=== PATIENT | female | born 2000 | race American Indian/Alaskan Native ===

== ENCOUNTER 2019-12-15 21:53 | Outpatient (CLI) | payer MEDICAID ==
[2019-12-15] MEDS ORDERED: LACTATED RINGERS 1,000 ML IV ONE (22:50)
[2019-12-15 23:55] LABS: Bilirubin,Urine NEG (Negative); Blood,Urine NEG (Negative); Color,Urine Straw (Yellow); Protein,Urine <15 mg/dL mg/dL (Negative); Urobilinogen,Urine < 2.0 mg/dL (<2.0)
[2019-12-16 01:09] VITALS: BP 131/72
--- NOTE | 2019-12-16 02:09 | Ultrasound Report ---
ULTRASOUND BIOPHYSICAL PROFILE INDICATION / CLINICAL INFORMATION: Decreased movement. COMPARISON: None available. FINDINGS: BREATHING MOVEMENT = 2 GROSS BODY MOVEMENT = 2 TONE = 2 QUALITATIVE AMNIOTIC FLUID VOLUME = 2 TOTAL BIOPHYSICAL SCORE = 07/08 AMNIOTIC FLUID: Deepest fluid pocket measures 4.9 cm. PRESENTATION: Cephalic. HEART RATE (beats per minute): 137 IMPRESSION: biophysical profile = 07/08 Signer Name: Pb Greenwood MD Signed: 12/16/2019 2:04 AM Workstation Name: [email or web address]
== END 2019-12-16 02:02 | disposition home or self-care (01) ==
LOC: TRG 21:53
PROVIDERS: ATTEND Obstetrics & Gynecology
DX: O62.9 Abnormality of forces of labor, unspecified (principal); O36.8130 Decreased fetal movements, third trimester, not applicable or unspecified; Z3A.36 36 weeks gestation of pregnancy
CPT/HCPCS: 59025; 76819; 81001; 96360; J7120

== ENCOUNTER 2020-01-06 20:09 | Outpatient (CLI) | payer MEDICAID ==
[2020-01-07] MEDS ORDERED: LACTATED RINGERS 1,000 ML ONE (00:57)
[2020-01-07] MEDS ORDERED: LACTATED RINGERS 1,000 ML IV ONE (01:23)
[2020-01-07 02:02] LABS: Hematocrit 33.6 % (30.3-42.9); Hemoglobin 10.9 gm/dl (10.1-14.3); Mean Corpuscular HGB Conc 33 % (30-34); Mean Corpuscular Volume 87 fl (79-97); Platelet Count 119 K/mm3 (140-440); Red Blood Count 3.84 M/mm3 (3.65-5.03); Red Cell Distribution Width 13.6 % (13.2-15.2)
[2020-01-07 02:08] LABS: Bacteria,Urine 3+ /HPF (Negative); Mucus,Urine 2+ /HPF
[2020-01-07 02:25] LABS: Alanine Aminotransferase 12 units/L (7-56)
[2020-01-07 02:27] LABS: Bilirubin,Urine NEG (Negative); Blood,Urine NEG (Negative); Color,Urine Yellow (Yellow); Urobilinogen,Urine < 2.0 mg/dL (<2.0)
[2020-01-07] MEDS ORDERED: TERBUTALINE 1 MG/1 ML INJ SUB-Q ONE (02:47)
[2020-01-07 03:13] LABS: Uric Acid 4.1 mg/dL (3.5-7.6)
[2020-01-07 03:30] VITALS: BP 134/82
== END 2020-01-07 03:39 | disposition home or self-care (01) ==
LOC: TRG 20:09
PROVIDERS: ATTEND Obstetrics & Gynecology
DX: O47.1 False labor at or after 37 completed weeks of gestation (principal); Z3A.39 39 weeks gestation of pregnancy
CPT/HCPCS: 36415; 59025; 81001; 82565; 83615; 84450; 84460; 84550; 85027; 86592; 86850; 86900; 86901; 87076; 87086; 87186; 96360; 96372; J3105; J7120; Q0177

== ENCOUNTER 2020-01-07 14:22 | Inpatient (IN) | payer MEDICAID ==
[2020-01-07] MEDS ORDERED: LACTATED RINGERS 1,000 ML ONE (15:54)
[2020-01-07 17:27] LABS: Hematocrit 34.7 % (30.3-42.9); Hemoglobin 11.2 gm/dl (10.1-14.3); Mean Corpuscular HGB Conc 32 % (30-34); Mean Corpuscular Volume 87 fl (79-97); Platelet Count 130 K/mm3 (140-440); Red Blood Count 3.97 M/mm3 (3.65-5.03); Red Cell Distribution Width 13.7 % (13.2-15.2)
[2020-01-07 17:36] LABS: Bacteria,Urine 1+ /HPF (Negative); Bilirubin,Urine NEG (Negative); Blood,Urine LG (Negative); Color,Urine Yellow (Yellow); Mucus,Urine 1+ /HPF; Urobilinogen,Urine < 2.0 mg/dL (<2.0)
[2020-01-07 17:47] LABS: Alanine Aminotransferase 13 units/L (7-56)
[2020-01-07] MEDS ORDERED: BUTORPHANOL 2 MG/1 ML INJ IV ONE (17:57)
[2020-01-07] MEDS ORDERED: MINERAL OIL 30 ML ORAL LIQD PO PRN (18:46)
[2020-01-07] MEDS ORDERED: ePHEDrine SULFATE 50 MG/1 ML INJ IV PRN ×2 (18:46→20:36)
[2020-01-07] MEDS ORDERED: ONDANSETRON 4 MG/2 ML INJ IV PRN (18:46)
[2020-01-07] MEDS ORDERED: BUTORPHANOL 2 MG/1 ML INJ IV PRN (18:46)
[2020-01-07] MEDS ORDERED: PROMETHAZINE 25 MG RECT SUPP PR PRN (18:46)
[2020-01-07] MEDS ORDERED: TERBUTALINE 1 MG/1 ML INJ IVP PRN (18:46)
[2020-01-07] MEDS ORDERED: LIDOCAINE (2%) 20 MG/1 ML VIAL 20 ML MDV INFILTRATI ONE (18:46)
[2020-01-07] MEDS ORDERED: fentaNYL 100 MCG/2 ML INJ IV PRN (18:46)
[2020-01-07] MEDS ORDERED: TERBUTALINE 1 MG/1 ML INJ SUB-Q PRN (18:46)
[2020-01-07] MEDS ORDERED: OXYTOCIN 20 UNIT/1000ML DRIP 20 UNITS/1,000 ML BAG IV SCH (19:00)
[2020-01-07] MEDS ORDERED: LACTATED RINGERS 1,000 ML IV SCH (19:00)
[2020-01-07] MEDS ORDERED: OXYTOCIN DRIP 30 UNITS/500 ML BAG IV SCH ×2 (19:00)
[2020-01-07] MEDS ORDERED: MAGNESIUM SULFATE 4 GM/100 ML BAG IV ONE (20:06)
[2020-01-07] MEDS ORDERED: DEXMEDETOMIDINE 200 MCG/2 ML VIAL IV ONE (20:31)
[2020-01-07] MEDS ORDERED: NALOXONE 2 MG/2 ML INJ IV PRN (20:36)
--- NOTE | 2020-01-07 20:37 | Anesthesia Consultation ---
Anesthesia Consult and Med Hx Date of service: 01/07/20 - Airway Anesthetic Teeth Evaluation: Good ROM Head & Neck: Adequate Mental/Hyoid Distance: Adequate Mallampati Class: Class II Intubation Access Assessment: Probably Good - Pulmonary Exam CTA: Yes - Cardiac Exam Cardiac Exam: RRR - Pre-Operative Health Status ASA Pre-Surgery Classification: ASA3 Proposed Anesthetic Plan: Epidural - Pulmonary Hx Asthma: No - Cardiovascular System Hx Hypertension: Yes - Central Nervous System Hx Seizures: No Hx Psychiatric Problems: No - Endocrine Hx Renal Disease: No Hx Hypothyroidism: No Hx Hyperthyroidism: No - Hematic Hx Anemia: No Hx Sickle Cell Disease: No - Other Systems Hx Alcohol Use: No
[2020-01-07] MEDS ORDERED: fentaNYL-BUPIV 2 MCG/ML-0.125% 200 MCG/100 ML BAG EPIDURAL SCH (21:00)
--- NOTE | 2020-01-07 22:08 | History and Physical Report ---
History of Present Illness Date of examination: 01/07/20 Date of admission: 01/07/20 16:35 Chief complaint: contractions History of present illness: Pt is a 19 year old -Citizen Of [place] female primigravida STEFANI 01/07/20 at 40w1d who presents with contractions and cervical change from 3-4 cm. During her observation she was found to have severe range blood pressures and was admitted for delivery. She had care at [facility] that has been uncomplicated. She is GBS negative. Past History Past Medical History: no pertinent history Past Surgical History: no surgical history Family/Genetic History: diabetes, hypertension Social history: no significant social history - Obstetrical History Expected Date of Delivery: 01/07/20 Actual Gestation: 40 Week(s) 1 Day(s) : 1 Medications and Allergies Allergies Allergy/AdvReac Type Severity Reaction Status Date / Time amoxicillin AdvReac Rash Verified 10/05/19 20:08 Home Medications Medication Instructions Recorded Confirmed Last Taken Type No Known Home Medications [No 12/15/19 01/07/20 Unknown History Reported Home Medications] Active Meds: Active Medications Butorphanol Tartrate (Stadol) 2 mg IV Q2H PRN PRN Reason: Pain , Severe (7-10) Ephedrine Sulfate (Ephedrine Sulfate) 10 mg IV Q2M PRN PRN Reason: Hypotension Ephedrine Sulfate (Ephedrine Sulfate) 10 mg IV Q2M PRN PRN Reason: Hypotension Fentanyl (Sublimaze) 100 mcg IV Q2H PRN PRN Reason: Labor Pain Oxytocin/Sodium Chloride (Pitocin/Ns 20 Unit/1000ml Drip) 20 units in 1,000 mls @ 125 mls/hr IV DIRECT KODY Oxytocin/Sodium Chloride (Pitocin/Ns 30 Unit/500ml) 30 units in 500 mls @ 1 mls/hr IV TITR KODY; Protocol Oxytocin/Sodium Chloride (Pitocin/Ns 30 Unit/500ml) 30 units in 500 mls @ 2 mls/hr IV TITR KODY; Protocol Lactated Ringer's (Lactated Ringers) 1,000 mls @ 125 mls/hr IV DIRECT KODY Last Admin: 01/07/20 21:14 Dose: 125 mls/hr Documented by: Magnesium Sulfate (Magnesium Sulfate 40gm/1000ml) 40 gm in 1,000 mls @ 50 mls/hr IV DIRECT KODY Fentanyl/Bupivacaine/Sodium Chlor (Fentanyl-Bupiv 2 Mcg/Ml-0.125%) 200 mcg in 100 mls @ 12 mls/hr EPIDURAL TITR KODY; Protocol Mineral Oil (Mineral Oil) 30 ml PO QHS PRN PRN Reason: Constipation Naloxone HCl (Naloxone) 0.2 mg IV Q5M PRN PRN Reason: Respiratory sedation Ondansetron HCl (Zofran) 4 mg IV Q8H PRN PRN Reason: Nausea And Vomiting Promethazine HCl (Phenergan) 25 mg MO Q6H PRN PRN Reason: N/V if unable to take po Terbutaline Sulfate (Brethine) 0.25 mg SUB-Q ONCE PRN PRN Reason: Hyperstimulation/Hypertonicity Terbutaline Sulfate (Brethine) 0.25 mg IVP ONCE PRN PRN Reason: Hyperstimulation/Hypertonicity - Vital Signs Vital signs: Vital Signs Pulse BP 75 185/113 01/07/20 15:22 01/07/20 15:22 Temp Pulse Resp BP Pulse Ox 97.9 F 56 L 18 144/95 100 01/07/20 17:32 01/07/20 22:07 01/07/20 19:08 01/07/20 22:07 01/07/20 22:04 - Physical Exam Breasts: Positive: deferred Cardiovascular: Regular rate Abdomen: Positive: soft (gravid ) Uterus: Positive: enlarged (gravid ) - Obstetrical FHR: category 2 Uterine Contraction Monitor Mode: External Cervical Dilatation: 5 Cervical Effacement Percentage: 90 station: -2 Uterine Contraction Pattern: Regular Uterine Tone Measurement Phase: Resting Uterine Contraction Intensity: Strong/Firm Results Result Diagrams: 01/07/20 Unknown 01/07/20 Unknown Abnormal lab results 01/07/20 01/07/20 01/07/20 Range/Units Unknown Unknown Unknown WBC 11.7 H (4.5-11.0) K/mm3 Plt Count 130 L (140-440) K/mm3 Creatinine 0.5 L (0.7-1.2) mg/dL Lactate Dehydrogenase 428 H (91-180) units/L Urine WBC (Auto) 18.0 H (0.0-6.0) /HPF All other labs normal. Assessment and Plan A: IUP at 40w1d Preeclampsia with severe features GBS Negative Penicillin Allergy P: Admit to labor and delivery Magnesium sulfate for seizure prophylaxis Pitocin augmentation Closely monitor maternal and status
[2020-01-07] MEDS: MAGNESIUM SULFATE 40GM/1000ML 40 GM/1,000 ML BAG IV SCH (23:16)
[2020-01-08] MEDS ORDERED: PROMETHAZINE 25 MG RECT SUPP PR PRN (02:33)
[2020-01-08] MEDS ORDERED: ONDANSETRON 4 MG/2 ML INJ IV PRN (02:33)
[2020-01-08] MEDS ORDERED: WITCH HAZEL/ GLYCERIN PAD TP PRN (02:33)
[2020-01-08] MEDS ORDERED: LANOLIN/ZINC/DIMETHICONE (LANSINOH) 7 GM TP PRN ×2 (02:33)
[2020-01-08] MEDS ORDERED: HYDROcodone/ACETAMINOPHEN 5-325 MG TAB PO PRN (02:33)
[2020-01-08] MEDS ORDERED: diphenhydrAMINE 25 MG CAP PO PRN (02:33)
[2020-01-08] MEDS ORDERED: MAGNESIUM HYDROXIDE (MOM) ORAL LIQD UDC PO PRN (02:33)
[2020-01-08] MEDS ORDERED: BENZOCAINE/MENTHOL 20/0.5% TOP SPRAY 56 GM TP PRN (02:33)
[2020-01-08] MEDS ORDERED: ACETAMINOPHEN 325 MG TAB PO PRN (02:33)
[2020-01-08] MEDS ORDERED: PROMETHAZINE 25 MG TAB PO PRN (02:33)
[2020-01-08] MEDS ORDERED: hydrALAZINE 20 MG/1 ML INJ IV PRN (02:33)
--- NOTE | 2020-01-08 02:33 | Procedure Note ---
OB Delivery Note - Delivery Date of Delivery: 01/08/20 Surgeon: DAX SCHMIDT Estimated blood loss: other (400 mL) - Vaginal Delivery presentation: vertex Delivery position: OA Intrapartum events: meconium Delivery induction: oxytocin Delivery augmentation: rupture of membranes, pitocin Delivery monitor: external FHT, external uterine Route of delivery: Delivery placenta: spontaneous Episiotomy: none Delivery laceration: other (Bilateral periurethral ) Anesthesia: epidural - Infant A at 1 minute: 8 at 5 minutes: 9 Gender: Female (3007g (6lb 10 oz) @ 0211 am)
[2020-01-08] MEDS ORDERED: LACTATED RINGERS 1,000 ML IV SCH (03:00)
[2020-01-08] MEDS: OXYTOCIN 20 UNIT/1000ML DRIP 20 UNITS/1,000 ML BAG IV SCH (03:02)
[2020-01-08] MEDS ORDERED: DEXMEDETOMIDINE 200 MCG/2 ML VIAL IV ONE (03:53)
[2020-01-08] MEDS: IBUPROFEN 600 MG TAB PO SCH ×2 (06:02→16:16)
[2020-01-08] MEDS ORDERED: BUPIVACAINE/PF (0.25%) 2.5 MG/ML 10 ML VIAL INFILTRATI ONE (09:10)
[2020-01-08] MEDS: FERROUS SULFATE 325 MG TAB PO SCH ×2 (09:52→21:35)
[2020-01-08 16:21] LABS: Hematocrit 35.3 % (30.3-42.9); Hemoglobin 11.3 gm/dl (10.1-14.3)
[2020-01-08] MEDS: MAGNESIUM SULFATE 40GM/1000ML 40 GM/1,000 ML BAG IV SCH (18:52)
--- NOTE | 2020-01-08 20:52 | Post Anesthesia Evaluation ---
- Post Anesthesia Evaluation Patient Participated: Yes Airway Patent: Yes Stable Respiratory Function: Yes Nausea/Vomiting: No Temp > 96.8F: Yes Pain Manageable: Yes Adequeate Hydration: Yes Anesthesia Complications: No Block Receding Appropriately: Yes
[2020-01-09] MEDS: IBUPROFEN 600 MG TAB PO SCH ×3 (00:10→11:52)
[2020-01-09] MEDS ORDERED: MEASLES, MUMPS & RUBELLA 12,500 UNIT/0.5 ML VACCINE SUB-Q ONE (06:00)
[2020-01-09] MEDS ORDERED: TETANUS,DIPH,PERTUSS(ACELL) VACCINE 0.5 ML SYRINGE IM ONE (06:00)
--- NOTE | 2020-01-09 08:39 | Progress Note ---
Assessment and Plan A: PPD#1 s/p at term, Severe Preeclampsia s/p 24 hrs magnesium sulfate for seizure prophylaxis. On Labetalol 100 mg BID presently P: Routine care. Monitor BP curve Subjective - Subjective Date of service: 01/09/20 Principal diagnosis: s/p at term, Severe Preeclampsia Interval history: Pt completed 24 hrs of magnesium sulfate for seizure prophylaxis. She is feeling well. Patient reports: appetite normal, voiding normally, pain well controlled, ambulating normally [place]: doing well Objective - Vital Signs Latest vital signs: Vital Signs Temp Pulse Resp BP BP Pulse Ox 01/09/20 03:17 97.8 F 88 18 149/109 01/09/20 02:37 97 H 97 01/09/20 02:32 97 H 97 01/09/20 02:27 93 H 97 01/09/20 02:22 94 H 99 01/09/20 02:21 106 H 92 01/09/20 02:17 86 97 01/09/20 02:12 85 98 01/09/20 02:07 88 97 01/09/20 02:02 86 97 01/09/20 02:00 96 H 138/96 01/09/20 01:57 89 97 01/09/20 01:52 94 H 98 01/09/20 01:47 90 97 01/09/20 01:42 88 97 01/09/20 01:37 88 97 01/09/20 01:32 90 97 01/09/20 01:27 92 H 97 01/09/20 01:22 95 H 97 01/09/20 01:17 94 H 98 01/09/20 01:12 102 H 100 01/09/20 01:07 92 H 97 01/09/20 01:02 90 98 01/09/20 01:00 95 H 133/86 01/09/20 00:57 96 H 98 01/09/20 00:52 93 H 98 01/09/20 00:47 92 H 98 01/09/20 00:42 90 98 01/09/20 00:37 89 98 01/09/20 00:32 88 98 01/09/20 00:27 86 98 01/09/20 00:22 87 98 01/09/20 00:17 84 99 01/09/20 00:12 87 99 01/09/20 00:07 82 99 01/09/20 00:02 82 100 01/09/20 00:00 82 134/81 01/08/20 23:57 87 98 01/08/20 23:52 89 99 01/08/20 23:47 85 99 01/08/20 23:42 91 H 100 01/08/20 23:37 88 100 01/08/20 23:32 84 98 01/08/20 23:27 85 98 01/08/20 23:22 82 99 01/08/20 23:17 82 99 01/08/20 23:12 84 98 01/08/20 23:07 79 99 01/08/20 23:02 83 99 01/08/20 23:00 76 140/94 01/08/20 22:57 78 100 01/08/20 22:52 84 99 01/08/20 22:47 85 98 01/08/20 22:42 83 99 01/08/20 22:37 85 100 01/08/20 22:32 85 98 01/08/20 22:27 89 99 01/08/20 22:22 87 98 01/08/20 22:17 90 97 01/08/20 22:12 93 H 96 01/08/20 22:07 90 98 01/08/20 22:05 89 153/96 01/08/20 22:02 94 H 98 01/08/20 21:57 99 H 98 01/08/20 21:52 85 100 01/08/20 21:47 90 98 01/08/20 21:42 85 100 01/08/20 21:37 89 99 01/08/20 21:32 89 99 01/08/20 21:27 93 H 99 01/08/20 21:22 100 H 153/101 99 01/08/20 21:19 92 H 165/104 01/08/20 21:17 96 H 100 01/08/20 21:12 94 H 100 01/08/20 21:07 90 100 01/08/20 21:02 97 H 100 01/08/20 20:57 87 100 01/08/20 20:52 87 156/102 99 01/08/20 20:47 90 99 01/08/20 20:42 91 H 98 01/08/20 20:37 90 99 01/08/20 20:32 91 H 98 01/08/20 20:00 97.8 F 20 01/08/20 19:55 87 143/85 01/08/20 19:52 93 H 149/101 01/08/20 19:22 88 134/93 01/08/20 18:52 96 H 138/94 01/08/20 18:22 97 H 153/101 01/08/20 17:52 96 H 153/100 01/08/20 17:22 130 H 189/98 01/08/20 16:52 90 154/102 01/08/20 16:22 99 H 156/99 01/08/20 16:18 95 H 99 01/08/20 16:13 92 H 99 01/08/20 16:08 104 H 98 01/08/20 16:07 97.3 F L 18 01/08/20 16:03 105 H 100 01/08/20 15:58 102 H 99 01/08/20 15:53 98 H 98 01/08/20 15:52 90 153/102 01/08/20 15:48 97 H 99 01/08/20 15:43 94 H 98 01/08/20 15:38 97 H 99 01/08/20 15:33 100 H 97 01/08/20 15:28 96 H 98 01/08/20 15:23 103 H 99 01/08/20 15:22 100 H 142/104 01/08/20 15:18 103 H 98 01/08/20 15:13 97 H 100 01/08/20 15:08 104 H 98 01/08/20 15:03 95 H 98 01/08/20 14:58 99 H 98 01/08/20 14:53 99 H 97 01/08/20 14:52 98 H 139/97 94 01/08/20 14:48 94 H 97 01/08/20 14:43 107 H 98 01/08/20 14:38 102 H 97 01/08/20 14:33 107 H 98 01/08/20 14:28 104 H 98 01/08/20 14:23 96 H 97 01/08/20 14:22 104 H 142/92 01/08/20 14:18 109 H 96 01/08/20 14:13 111 H 97 01/08/20 14:08 102 H 98 01/08/20 14:03 97 H 97 01/08/20 13:58 97 H 97 01/08/20 13:53 110 H 98 01/08/20 13:52 109 H 139/99 01/08/20 13:48 110 H 98 01/08/20 13:43 106 H 98 01/08/20 13:38 109 H 98 01/08/20 13:33 105 H 99 01/08/20 13:28 101 H 98 01/08/20 13:23 101 H 99 01/08/20 13:22 100 H 142/100 01/08/20 13:18 116 H 98 01/08/20 13:13 116 H 96 01/08/20 13:08 104 H 96 01/08/20 13:07 97.3 F L 15 01/08/20 13:03 108 H 97 01/08/20 12:58 101 H 96 01/08/20 12:53 106 H 97 01/08/20 12:52 107 H 151/104 94 01/08/20 12:48 105 H 98 01/08/20 12:43 109 H 97 01/08/20 12:38 113 H 98 01/08/20 12:33 105 H 97 01/08/20 12:28 107 H 97 01/08/20 12:23 109 H 97 01/08/20 12:22 107 H 157/105 01/08/20 12:18 111 H 99 01/08/20 12:13 104 H 97 01/08/20 12:08 102 H 97 01/08/20 12:03 108 H 97 01/08/20 11:58 113 H 98 01/08/20 11:53 105 H 98 01/08/20 11:52 107 H 138/98 01/08/20 11:48 95 01/08/20 11:43 107 H 98 01/08/20 11:38 111 H 98 01/08/20 11:33 117 H 99 01/08/20 11:28 117 H 98 01/08/20 11:23 109 H 99 01/08/20 11:22 111 H 147/100 01/08/20 11:18 108 H 98 01/08/20 11:13 106 H 98 01/08/20 11:08 112 H 99 01/08/20 11:03 118 H 100 01/08/20 10:58 109 H 99 01/08/20 10:53 125 H 99 01/08/20 10:52 121 H 143/96 01/08/20 10:48 105 H 96 01/08/20 10:43 105 H 96 01/08/20 10:38 101 H 96 01/08/20 10:33 106 H 96 01/08/20 10:28 106 H 96 01/08/20 10:23 105 H 96 01/08/20 10:22 105 H 133/85 01/08/20 10:18 103 H 96 01/08/20 10:13 103 H 96 01/08/20 10:08 103 H 96 01/08/20 10:03 102 H 96 01/08/20 10:00 16 01/08/20 09:58 104 H 96 01/08/20 09:53 104 H 96 01/08/20 09:52 103 H 138/78 94 01/08/20 09:48 99 H 96 01/08/20 09:43 96 H 96 01/08/20 09:38 107 H 98 01/08/20 09:33 108 H 97 01/08/20 09:28 105 H 98 01/08/20 09:23 110 H 98 01/08/20 09:22 109 H 141/95 01/08/20 09:18 110 H 97 01/08/20 09:13 116 H 97 01/08/20 09:08 111 H 96 01/08/20 09:03 104 H 97 01/08/20 08:58 110 H 98 01/08/20 08:53 116 H 97 01/08/20 08:52 100 H 137/90 01/08/20 08:48 110 H 98 01/08/20 08:43 109 H 97 Intake and Output 01/08/20 01/09/20 01/09/20 22:59 06:59 14:59 Intake Total 980 605 Output Total 1500 1400 Balance -520 -795 Intake: IV 980 365 MAGNESIUM SULFATE 40GM/ 980 365 1000ML 40 gm In 1,000 ml @ 2 GM/HR 50 mls/hr IV DIRECT KODY Rx#:[id number] Oral 240 Output: Urine 1500 1400 Indwelling Catheter 1500 1000 Void 400 Other: Total, Intake Amount 240 Total, Output Amount 200 400 - Exam Breasts: Present: deferred Cardiovascular: Present: Regular rate Lungs: Present: Clear to auscultation Abdomen: Present: soft Uterus: Present: fundal height at umbilicus Extremities: Present: edema (1+) - Labs Labs: Abnormal lab results 01/08/20 01/08/20 Range/Units 16:15 21:41 Magnesium 6.10 H 6.00 H (1.7-2.3) mg/dL
[2020-01-09] MEDS: NITROFURANTOIN MONOHYD/M-CRYST 100 MG CAP PO SCH (10:33)
[2020-01-09] MEDS: FERROUS SULFATE 325 MG TAB PO SCH (10:33)
[2020-01-10] MEDS: FERROUS SULFATE 325 MG TAB PO SCH ×3 (00:56→22:17)
[2020-01-10] MEDS: NITROFURANTOIN MONOHYD/M-CRYST 100 MG CAP PO SCH ×2 (09:15→22:17)
[2020-01-10] MEDS: IBUPROFEN 600 MG TAB PO SCH ×3 (09:15→22:17)
[2020-01-10] MEDS: NIFEdipine XL 30 MG TAB PO SCH (17:55)
[2020-01-11] MEDS: IBUPROFEN 600 MG TAB PO SCH ×3 (01:47→15:32)
--- NOTE | 2020-01-11 08:33 | Progress Note ---
Assessment and Plan PPD 2 s/p . Pt has continued elevate BP despite treatment with Labetalol. WIll add procardia xl to see if pressure comes down. Will delay discharge until after bp is controlled. Otherwise doing well. Subjective - Subjective Date of service: 01/10/20 Principal diagnosis: s/p at term, Severe Preeclampsia Interval history: Pt is post at term complicated by preeclampsia. Pt bp are still elevated over her normal range in the 140s/90s. Patient reports: appetite normal, voiding normally, pain well controlled, ambulating normally [place]: doing well Objective - Vital Signs Latest vital signs: Vital Signs Temp Pulse Resp BP Pulse Ox 01/11/20 05:22 98.1 F 71 20 118/68 98 01/11/20 00:50 98.0 F 72 18 138/83 95 01/10/20 23:17 18 01/10/20 22:18 78 148/97 01/10/20 22:17 18 01/10/20 22:16 148/97 01/10/20 20:39 98.6 F 18 141/82 01/10/20 12:18 98.0 F 80 18 141/88 99 01/10/20 09:15 73 147/93 01/10/20 08:58 97.9 F 71 18 147/93 100 Intake and Output 01/10/20 01/11/20 01/11/20 22:59 06:59 14:59 Intake Total 360 240 Balance 360 240 Intake: Oral 240 Intake, Free Water 360 Other: Total, Intake Amount 240 # Voids Void 2 1 - Exam Breasts: Present: deferred Cardiovascular: Present: Regular rate, Normal S1, Normal S2 Lungs: Present: Clear to auscultation, Normal air movement Abdomen: Present: normal appearance, soft, normal bowel sounds Uterus: Present: normal, firm Extremities: Present: normal Deep Tendon Reflex Grade: Normal +2
--- NOTE | 2020-01-11 08:45 | Progress Note ---
Assessment and Plan ppd 3 S/P . Doing well. Pt ok to be discharged on today. Will send home on Procardia 30mg. Subjective - Subjective Date of service: 01/11/20 Principal diagnosis: s/p at term, Severe Preeclampsia Interval history: Pt is post at term complicated by preeclampsia. Pt bp are still elevated over her normal range in the 140s/90s. Patient reports: appetite normal, voiding normally, pain well controlled, ambulating normally [place]: doing well Objective - Vital Signs Latest vital signs: Vital Signs Temp Pulse Resp BP Pulse Ox 01/11/20 07:59 98.4 F 76 20 122/90 100 01/11/20 05:22 98.1 F 71 20 118/68 98 01/11/20 00:50 98.0 F 72 18 138/83 95 01/10/20 23:17 18 01/10/20 22:18 78 148/97 01/10/20 22:17 18 01/10/20 22:16 148/97 01/10/20 20:39 98.6 F 18 141/82 01/10/20 12:18 98.0 F 80 18 141/88 99 01/10/20 09:15 73 147/93 01/10/20 08:58 97.9 F 71 18 147/93 100 Intake and Output 01/10/20 01/11/20 01/11/20 22:59 06:59 14:59 Intake Total 360 240 Balance 360 240 Intake: Oral 240 Intake, Free Water 360 Other: Total, Intake Amount 240 # Voids Void 2 1 - Exam Cardiovascular: Present: Regular rate, Normal S1, Normal S2 Lungs: Present: Clear to auscultation, Normal air movement Abdomen: Present: normal appearance, soft Extremities: Present: normal
--- NOTE | 2020-01-11 08:47 | Discharge Summary ---
Providers - Providers Date of Admission: 01/07/20 16:35 Date of discharge: 01/11/20 Attending physician: FRANCOISE KAPLAN Primary care physician: FRANCOISE KAPLAN Hospitalization Reason for admission: active labor Delivery: complications: other (preeclampsia) Discharge diagnosis: IUP at term delivered baby: female Hospital course: improved Condition at discharge: Good Disposition: DC-01 TO HOME OR SELFCARE Plan - Discharge Medications Prescriptions: Ibuprofen [Motrin] 600 mg PO Q6H PRN #30 tablet PRN Reason: Pain NIFEdipine XL [Procardia Xl] 30 mg PO Q12HR #60 tab - Provider Discharge Summary Activity: routine, no sex for 6 weeks, no heavy lifting 4 weeks, no strenuous exercise Diet: routine Instructions: routine Additional instructions: [] Smoking cessation referral if applicable(refer to patient education folder for contact #) [] Refer to [facility] Booklet Call your doctor immediately for: * Fever > 100.5 * Heavy vaginal bleeding ( >1 pad per hour) * Severe persistent headache * Shortness of breath * Reddened, hot, painful area to leg or breast * Drainage or odor from incision. * Keep incision clean and dry at all times and follow doctor's instructions reg arding bathing/showering - Follow up plan Follow up: FRANCOISE KAPLAN MD [Primary Care Provider] - 6 Weeks
[2020-01-11] MEDS: NITROFURANTOIN MONOHYD/M-CRYST 100 MG CAP PO SCH ×2 (10:00→10:35)
[2020-01-11] MEDS: NIFEdipine XL 30 MG TAB PO SCH (10:35)
[2020-01-11] MEDS: FERROUS SULFATE 325 MG TAB PO SCH (10:35)
[2020-01-11 16:59] VITALS: BP 124/81
== END 2020-01-11 19:29 | disposition home or self-care (01) | DRG 775 ==
LOC: TRG 14:22 → LD 16:35 → OB 01-09 03:14
PROVIDERS: ADMIT Obstetrics & Gynecology; ATTEND Obstetrics & Gynecology
PROC: 10E0XZZ Delivery of Products of Conception, External Approach (ICD-10-PCS; principal; 2020-01-08)
PROC: 0UQMXZZ Repair Vulva, External Approach (ICD-10-PCS; 2020-01-08)
PROC: 3E0R3BZ Introduction of Anesthetic Agent into Spinal Canal, Percutaneous Approach (ICD-10-PCS; 2020-01-08)
PROC: 00HU33Z Insertion of Infusion Device into Spinal Canal, Percutaneous Approach (ICD-10-PCS; 2020-01-08)
PROC: 3E0234Z Introduction of Serum, Toxoid and Vaccine into Muscle, Percutaneous Approach (ICD-10-PCS; 2020-01-09)
PROC: 3E0134Z Introduction of Serum, Toxoid and Vaccine into Subcutaneous Tissue, Percutaneous Approach (ICD-10-PCS; 2020-01-09)
DX: O14.14 Severe pre-eclampsia complicating childbirth (principal); O76 Abnormality in fetal heart rate and rhythm complicating labor and delivery; Z3A.40 40 weeks gestation of pregnancy; Z37.0 Single live birth; Z23 Encounter for immunization; O71.82 Other specified trauma to perineum and vulva
CPT/HCPCS: 36415; 59025; 81001; 82565; 83615; 83735; 84450; 84460; 84550; 85014; 85018; 85027; 86592; 86850; 86900; 86901; 87076; 87086; 87186; 88307; 90707; 96360; 96372; G0378; J0595; J2590; J3105; J3475; J3490; J7120; Q0177